=== PATIENT | female | born 1950 | race Hispanic/Latino ===

== ENCOUNTER → 2018-06-17 | Outpatient (CLI) | payer OTHER | END | disposition home or self-care (01) | LOC: RAH 08:51 | PROVIDERS: ATTEND Internal Medicine | DX: Z12.31 Encounter for screening mammogram for malignant neoplasm of breast (principal) | CPT/HCPCS: 77067 ==

== ENCOUNTER → 2019-06-26 | Outpatient (CLI) | payer OTHER | END | disposition home or self-care (01) | LOC: RAH 09:49 | PROVIDERS: ATTEND Internal Medicine | DX: Z12.31 Encounter for screening mammogram for malignant neoplasm of breast (principal) | CPT/HCPCS: 77067 ==

== ENCOUNTER → 2020-06-26 | Outpatient (CLI) | payer OTHER | END | disposition home or self-care (01) | LOC: RAH 11:02 | PROVIDERS: ATTEND Internal Medicine | DX: Z12.31 Encounter for screening mammogram for malignant neoplasm of breast (principal) | CPT/HCPCS: 77067 ==

== ENCOUNTER → 2021-02-04 | Outpatient (CLI) | payer OTHER | END | disposition home or self-care (01) | LOC: RAH 11:02 | PROVIDERS: ATTEND Internal Medicine | DX: M47.22 Other spondylosis with radiculopathy, cervical region (principal); M40.40 Postural lordosis, site unspecified; M25.78 Osteophyte, vertebrae; M25.512 Pain in left shoulder | CPT/HCPCS: 72040; 73030 ==

== ENCOUNTER → 2022-09-14 | Outpatient (CLI) | payer OTHER | END | disposition home or self-care (01) | LOC: RAH 13:45 | PROVIDERS: ATTEND Internal Medicine | DX: Z12.31 Encounter for screening mammogram for malignant neoplasm of breast (principal) | CPT/HCPCS: 77067 ==

== ENCOUNTER → 2022-10-02 | Outpatient (CLI) | payer OTHER | END | disposition home or self-care (01) | LOC: RAH 13:42 | PROVIDERS: ATTEND Internal Medicine | DX: I65.23 Occlusion and stenosis of bilateral carotid arteries (principal); R55 Syncope and collapse | CPT/HCPCS: 93880 ==

== ENCOUNTER → 2023-09-23 | Outpatient (CLI) | payer OTHER | END | disposition home or self-care (01) | LOC: RAH 08:15 | PROVIDERS: ATTEND Internal Medicine | DX: Z12.31 Encounter for screening mammogram for malignant neoplasm of breast (principal) | CPT/HCPCS: 77067 ==

== ENCOUNTER → 2024-09-29 | Outpatient (CLI) | payer OTHER ==
--- NOTE | 2024-09-29 09:36 | HMCIMG ---
MAMMO SCREENING BILATERAL HISTORY: Screening mammogram. COMPARISON: 09/23/2023 TECHNIQUE: Bilateral screening mammogram with CAD was performed with craniocaudal and mediolateral oblique projections. FINDINGS: There are scattered areas of fibroglandular density. Asymmetric density is seen in the upper aspect of the left breast only seen on the MLO view. This represent a change from previous study. [place] compression view and ultrasound are recommended for complete evaluation. There is no evidence of a dominant mass, or suspicious microcalcification. There is no evidence of nipple retraction or skin thickening. IMPRESSION: 1. Asymmetric density is seen in the upper aspect of the left breast only seen on the MLO view. This represent a change from previous study. Coned compression view and ultrasound are recommended for complete evaluation. Patient was entered into a reminder system with a target due date for their next mammogram. BI-RADS: CATEGORY 0: INCOMPLETE. NEED ADDITIONAL IMAGING EVALUATION Diagnostic mammogram is recommended. Recommend monthly self breast exam as well as annual clinical examination. A negative x-ray should not delay biopsy if a dominant or clinically suspicious mass is present, since 8-10% of cancers are not identified by mammography. Dense breasts particularly, may obscure an underlying neoplasm. Some of these may be detected clinically and therefore, clinical examination is an essential part of breast evaluation.
== END | disposition home or self-care (01) ==
LOC: RAH 08:35
PROVIDERS: ATTEND Internal Medicine
DX: Z12.31 Encounter for screening mammogram for malignant neoplasm of breast (principal); R92.323 Mammographic fibroglandular density, bilateral breasts
CPT/HCPCS: 77067

== ENCOUNTER → 2024-10-17 | Outpatient (CLI) | payer OTHER ==
--- NOTE | 2024-10-19 11:48 | HMCIMG ---
PROCEDURE: MAMMO DX UNILATERAL LEFT, US BREAST COMPLETE UNILATERAL HISTORY: Abnormal mammogram COMPARISON: None TECHNIQUE: Left breast digital diagnostic mammogram with CAD was performed. No additional views were obtained. Left breast ultrasound was performed. FINDINGS: The breasts are heterogeneously dense, which may obscure small masses. There is no evidence of a dominant mass, or suspicious microcalcification. There is no evidence of nipple retraction or skin thickening. [Ultrasound shows no evidence of cystic or hypoechoic mass. There are left axillary lymph nodes with the largest measuring 2.7 cm. IMPRESSION: 1. Stable mammogram. No cystic or hypoechoic mass is seen of left breast. BI-RADS: CATEGORY 2: BENIGN FINDINGS Recommend monthly self breast exam as well as annual clinical examination. A negative x-ray should not delay biopsy if a dominant or clinically suspicious mass is present, since 8-10% of cancers are not identified by mammography. Dense breasts particularly, may obscure an underlying neoplasm. Some of these may be detected clinically and therefore, clinical examination is an essential part of breast evaluation.
== END | disposition home or self-care (01) ==
LOC: RAH 09:04
PROVIDERS: ATTEND Internal Medicine
DX: N64.89 Other specified disorders of breast (principal)
CPT/HCPCS: 76641; 77065

== ENCOUNTER → 2025-02-20 | Outpatient (CLI) | payer OTHER ==
--- NOTE | 2025-02-20 17:53 | HMCIMG ---
EXAM: US Duplex Left Lower Extremity Veins. CLINICAL HISTORY: Pain in left leg; rule out DVT. TECHNIQUE: Real-time ultrasound scan of the veins of the left lower extremity with color Doppler flow, spectral waveform analysis and compression. COMPARISON: None provided. FINDINGS: DEEP VEINS: The common femoral, proximal superficial femoral, mid superficial femoral, distal superficial femoral, popliteal, posterior tibial and peroneal veins are echolucent and compressible. These vessels demonstrate respiratory variation and augmentation. There is normal color Doppler flow throughout. No evidence of acute deep venous thrombosis. SUPERFICIAL VEINS: The visualized greater saphenous vein and superficial femoral vein tributaries are patent. SOFT TISSUES: Enlarged left groin lymph node measuring 9.6 x 4.4 cm ??? nonspecific, may represent reactive vs. pathologic lymphadenopathy. Recommend clinical correlation and further imaging if indicated. IMPRESSION: 1. No evidence of DVT in the left lower extremity deep or superficial venous system. 2. Enlarged left groin lymph node (9.6 x 4.4 cm), nonspecific, may represent reactive vs. pathologic lymphadenopathy. Recommend clinical correlation and further imaging if indicated. /[place]
--- NOTE | 2025-02-21 06:03 | HMCIMG ---
EXAMINATION: DUPLEX ULTRASOUND EXAMINATION OF THE LEFT LOWER EXTREMITY ARTERIES. CLINICAL HISTORY: Pain. COMPARISON: None. FINDINGS: Peak systolic velocities within the left lower arteries are as follows: Common femoral artery: 186 cm/s. Superficial femoral artery: 133 cm/s at proximal, 93 cm/s at mid, and 102 cm/s at distal segments. Popliteal artery: 106 cm/s at proximal and 88 cm/s at distal segments. Posterior tibial artery: 101 cm/s. Anterior tibial artery: 90 cm/s. Dorsalis pedis artery: 61 cm/s. The left lower limb arteries demonstrate biphasic waveforms in all arteries. There is intimal wall thickening and multi-level atherosclerosis in the left lower limb arteries. IMPRESSION: Mild intimal wall thickening and multi-level atherosclerosis in the left lower limb arteries. The left lower limb arteries demonstrate biphasic waveforms. No flow limiting lesions. /[place]
== END | disposition home or self-care (01) ==
LOC: RAH 12:45
PROVIDERS: ATTEND Internal Medicine
DX: I70.202 Unspecified atherosclerosis of native arteries of extremities, left leg (principal); R59.9 Enlarged lymph nodes, unspecified; M79.605 Pain in left leg
CPT/HCPCS: 93926; 93971

== ENCOUNTER → 2025-02-23 | Outpatient (CLI) | payer OTHER ==
--- NOTE | 2025-02-23 15:18 | HMCIMG ---
Exam Type: CT pelvis without contrast Clinical Information: Localized enlarged lymph nodes Comparison: Prior ultrasound is available for comparison. Technique: Routine helical scanning at 5mm collimation through the abdomen and pelvis was performed. Sagittal and coronal reformations were also done. CT Dose Index (CTDI): 6.10 mGy Dose Length Product (DLP): 233.90 total mGy-cm Findings: The visualized pelvic bowel loops are unremarkable. No free fluid or fluid collections of the pelvis are seen. The pelvic viscera are normal in CT appearance. The perirectal fat planes are clear. The visualized osseous elements are normal for the patient's age. The uterus appears to be surgically absent. There is no lymphadenopathy seen in the inguinal region. IMPRESSION: NEGATIVE CT SCAN OF THE PELVIS WITHOUT CONTRAST.
== END | disposition home or self-care (01) ==
LOC: RAH 12:16
PROVIDERS: ATTEND Internal Medicine
DX: R59.0 Localized enlarged lymph nodes (principal); Z90.710 Acquired absence of both cervix and uterus
CPT/HCPCS: 72192